=== PATIENT | female | born 1990 | race Caucasian/White ===

== ENCOUNTER 2023-02-05 21:00 | Emergency (ER) | payer SELFPAY ==
[2023-02-05] MEDS ORDERED: AMPICILLIN/SULBACTAM 3 GM in SODIUM CHLORIDE 0.9% MINIBAG 100 ML IV STA (21:31)
[2023-02-05] MEDS ORDERED: DEXAMETHASONE 10 MG/ML VIAL IVP STA (21:31)
--- NOTE | 2023-02-05 21:34 | ED Physician Documentation ---
History of Present Illness - Stated complaint Stated Complaint: L JAW PX, SWELLING - Chief complaint Chief Complaint: General - History obtained from History obtained from: Patient - Additonal information Additional information: She had wisdom tooth removal 5 [address] was Dr[address] Molina in [place]. She was prescribed antibiotics but really did not want to take them. 2 days later, on Wednesday she started develop facial swelling and started the amoxicillin at that point. Unfortunately despite that the facial swelling has been progressive. She has not had any fevers. PD PAST MEDICAL HISTORY - Allergies Allergies/Adverse Reactions: Allergies Allergy/AdvReac Type Severity Reaction Status Date / Time No Known Drug Allergies Allergy Verified 02/05/23 21:26 PD ED PE NORMAL - Vitals Vital signs reviewed: Yes - General General: Alert and oriented X 3, No acute distress - HEENT HEENT: PERRL, EOMI, Other (She has very significant swelling of the left face over the mandible with trismus at about 10 mm between the incisors. I am able to visualize and she has pus flowing from the posterior left mandible area.) - Neck Neck: Supple, no meningeal sign, No bony TTP - Neuro Neuro: Alert and oriented X 3, Normal speech Results - Vitals Vitals: Vital Signs - 24 hr 02/05/23 21:08 Temperature 37.1 C Heart Rate 99 Respiratory 16 Rate Blood Pressure 122/71 O2 Saturation 99 Oxygen O2 Source Room air PD Medical Decision Making - ED course ED course: 33-year-old woman with likely postoperative abscess due to medical noncompliance after wisdom tooth removal. After initial evaluation I spoke with Dr. Molina. He is out of town this evening but will be back tomorrow and recommends Unasyn, a single dose of dexamethasone, not scheduled, and admission to the hospitalist with a CT scan of the area with likely plan for OR late afternoon tomorrow. Departure - Departure Disposition: [facility] DC/Xfer Clinical Impression: Dental abscess, Facial cellulitis Condition: Serious
[2023-02-05 21:43] LABS: BASOPHILS % (AUTO) 0.2 %; EOSINOPHILS # (AUTO) 0.1 10^3/uL (0.0-0.7); EOSINOPHILS % (AUTO) 0.3 %; HCT - HEMATOCRIT 40.1 % (37.0-47.0); HGB - HEMOGLOBIN 13.3 g/dL (12.0-16.0); LYMPHOCYTES # (AUTO) 1.3 10^3/uL (1.5-3.5); MEAN CORPUSCULAR HEMOGLOBIN 32.4 pg (27.0-31.0); MEAN CORPUSCULAR HGB CONC 33.2 g/dL (32.0-36.0); MEAN CORPUSCULAR VOLUME 97.6 fL (81.0-99.0); MEAN PLATELET VOLUME 9.3 fL (7.9-10.8); MONOCYTES # (AUTO) 1.1 10^3/uL (0.0-1.0); MONOCYTES % (AUTO) 7.7 %; NEUTROPHILS # (AUTO) 12.1 10^3/uL (1.5-6.6); NEUTROPHILS % (AUTO) 82.5 %; PLT - PLATELET COUNT 285 10^3/uL (130-450); RED BLOOD COUNT 4.11 10^6/uL (4.20-5.40); RED CELL DISTRIBUTION WIDTH 11.9 % (12.0-15.0); WHITE BLOOD COUNT 14.6 x10^3/uL (4.8-10.8)
[2023-02-05] MEDS ORDERED: LORazepam 2 MG/ML VIAL IVP STA (21:49)
[2023-02-05] MEDS ORDERED: iohexoL-300 100 ML VIAL ONE (21:52)
[2023-02-05 21:53] LABS: CALCIUM 8.3 mg/dL (8.5-10.3); CREATININE 0.7 mg/dL (0.4-1.0)
[2023-02-05 22:05] LABS: HCG,QUALITATIVE BLOOD NEGATIVE
[2023-02-05] MEDS ORDERED: KETOROLAC 30 MG/ML VIAL IVP STA (22:31)
[2023-02-05] MEDS ORDERED: iohexoL-300 100 ML VIAL IVP ONE (23:00)
--- NOTE | 2023-02-05 23:11 | ED Physician Documentation ---
ED Addendum - Addendum Addendum: 02/05/23 23:10 Patient received a signout from off going physician, please see their d ocumentation for further detail. In short patient is 33-year-old female presenting to the emergency department approximately 5 days after wisdom tooth extraction with significant left-sided facial swelling and signs of acute infection. Evaluated independently and found to be protecting her airway but does complain of pain. Requested medication and was given dose of Toradol as she specifically requested nonnarcotic options. Discussed with the telehospitalist who declines the patient with stated reason of "nothing for the hospitalist team to do". Case was discussed once more with Dr. Fairbanks. Upon review of imaging plan was made for careful monitoring in the emergency department overnight. Patient was also agreeable for this plan. Second dose Unasyn was given at approximately 0300 hrs. On reevaluation at approximately 0630 hrs. patient was found to be resting comfortably and reported significant improvement in her facial swelling. There was notable improvement on exam as well. Per consultation with Dr. Fairbanks, will initiate course of Augmentin as well as a probiotic. Will encourage regular use acetaminophen and ibuprofen for pain control as well as ice packs. Patient was offered stronger medication which she declined this. Will encourage careful follow-up with [facility] or return to the emergency department for any new or worsening symptoms. 02/06/23 06:17
--- NOTE | 2023-02-06 00:28 | CT Report ---
PROCEDURE: SOFT TISSUE NECK W INDICATIONS: facial neck CONTRAST: Omni 300 100ml TECHNIQUE: After the administration of intravenous contrast, 3.0 mm axial sections acquired from the sella to th e aortic arch. Additional oblique axial 3.0 mm sections acquired through the pharynx. 3 mm thick co nura reformats were generated. For radiation dose reduction, the following was used: automated exp osure control, adjustment of mA and/or kV according to patient size. COMPARISON: None. FINDINGS: Image quality: Excellent. Lymph nodes: No enlarged lymph nodes seen throughout the neck. Vessels: Visualized vasculature appears patent. Neck spaces: The oropharynx, nasopharynx, and pharynx demonstrate no mucosal lesions. The vocal cor ds, false vocal cords, pyriform sinuses, epiglottis, vallecula, and tongue base all appear normal. 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 There is an associated loculated fluid collec tion along the outer cortex of the left mandible measuring approximately 1.7 x 1.1 cm in transverse d imension by 1.7 cm in cranial caudal dimension consistent with a periosteal abscess. Glands: The parotid and submandibular glands appear normal. The thyroid is normal in size and there are no incidental findings. Miscellaneous: Visualized brain and orbits appear normal. Lung apices appear clear. Bones: No discrete bony erosions. No suspicious bony lesions. Visualized sinuses and mastoids appea r unremarkable. IMPRESSION: 1. Left facial soft tissue swelling and subcutaneous edema suggestive of cellulitis given clinical hi story. 2. Loculated fluid collection along the left mandible compatible with a periosteal abscess. Reviewed by: Iban Glass MD on 02/06/2023 12:26 AM PDT Approved by: Iban Glass MD on 02/06/2023 12:26 AM PDT Station ID: [id number]
[2023-02-06] MEDS ORDERED: AMPICILLIN/SULBACTAM 3 GM in SODIUM CHLORIDE 0.9% MINIBAG 100 ML IV ONE (03:00)
[2023-02-06 06:22] VITALS: BP 114/76
== END 2023-02-06 06:25 | disposition home or self-care (01) ==
LOC: ED 21:00
DX: K04.7 Periapical abscess without sinus (principal); L03.211 Cellulitis of face
CPT/HCPCS: 36415; 70491; 80048; 84703; 85025; 96365; 96366; 96375; 99284; 99285; J2060; Q9967